=== PATIENT | female | born 1950 | race Two or more races ===

== ENCOUNTER 2017-10-30 05:43 | Inpatient (IN) | payer MEDICARE, OTHER ==
[~2017-10-30] VITALS: Ht 154.9 cm; Wt 97.0 kg
[2017-10-30] MEDS ORDERED: MORPHINE SULF INJ 2 MG/ML SYRINGE 1ML IV ONE (07:45)
[2017-10-30] MEDS ORDERED: ONDANSETRON HCL 4 MG/2 ML VIAL IV ONE ×2 (07:45→20:15)
[2017-10-30] MEDS ORDERED: SODIUM CHLORIDE 0.9% 1,000 ML IV SCH (08:58)
[2017-10-30] MEDS ORDERED: LORazepam 0.5 MG TAB PO PRN (09:00)
[2017-10-30] MEDS ORDERED: TEMAZEPAM 15 MG CAP PO PRN (09:00)
[2017-10-30] MEDS ORDERED: ACETAMINOPHEN 500 MG TAB PO PRN (09:00)
[2017-10-30] MEDS ORDERED: LACTULOSE 20Gm/30ML SOLN PO PRN (09:00)
[2017-10-30] MEDS ORDERED: PROMETHAZINE HCL 25 MG/ML 1ML IV PRN (09:00)
[2017-10-30] MEDS ORDERED: NITROGLYCERIN 0.4 MG SL TAB SL PRN (09:00)
[2017-10-30] MEDS ORDERED: MORPHINE SULF INJ 2 MG/ML SYRINGE 1ML IV PRN ×3 (09:00→20:15)
[2017-10-30 09:28] LABS: Basophils # (auto) 0.1 uL; Basophils % (auto) 0.7 % (0.0-2.0); Eosinophils # (auto) 0 uL; Hematocrit 35.2 % (36.0-46.0); Hemoglobin 11.8 g/dL (12.2-16.2); Lymphocytes # (auto) 0.9 uL; Lymphocytes % (auto) 11.6 % (10.0-50.0); Mean Corpuscular Hemoglobin 32.3 pg (28.0-32.0); Mean Corpuscular Hgb Conc. 33.6 g/dL (32.0-36.0); Mean Corpuscular Volume 96.3 fL (80.0-100.0); Monocytes # (auto) 1.2 uL; Monocytes % (auto) 15.7 % (0.0-12.0); Neutrophils # (auto) 5.7 uL; Platelet Count (auto) 176 10^3/uL (140-450); Red Blood Cells 3.66 10^6/uL (4.0-5.20); Red Cell Distribution Width 14.1 % (11.8-14.3); White Blood Cell 7.9 10^3/uL (4.4-10.8)
[2017-10-30 09:40] LABS: INR 0.94 (0.9-1.15); Partial Thromboplastin Time 27.8 sec (22.64-33.71); Prothrombin Time 10.2 sec (9.37-12.3)
[2017-10-30] MEDS: PANTOPRAZOLE 40 MG TAB PO SCH (10:00)
[2017-10-30 10:10] LABS: Albumin 2.9 g/dL (3.4-5.0); Magnesium 2.1 mg/dL (1.6-2.6); Potassium 4.5 mmol/L (3.5-5.1)
[2017-10-30 10:12] LABS: BUN/Creatinine Ratio 21.8
[2017-10-30 10:15] LABS: Bilirubin, Total 0.3 mg/dL (0.2-1.0); Total Protein 7.2 g/dL (6.4-8.2)
[2017-10-30] MEDS ORDERED: OSELTAMIVIR 75 MG CAP PO ONE (10:30)
[2017-10-30] MEDS ORDERED: CARVEDILOL 3.125 MG TAB PO SCH (10:45)
[2017-10-30] MEDS: cefTRIAXone 1GM/10ml IVPUSH 10 ML IV SCH (11:15)
[2017-10-30] MEDS: ENALAPRIL MALEATE 2.5 MG TAB PO SCH (11:15)
[2017-10-30 16:15] LABS: Urine Amorphous Crystal FEW /hpf (None Seen); Urine Bacteria FEW /hpf (None Seen); Urine Blood 2+ /uL (Negative); Urine Mucus FEW (None Seen); Urine Specific Gravity 1.021 (1.001-1.035); Urine WBC 2 /hpf (0 - 5)
[2017-10-30 17:00] VITALS: BP 148/68
[2017-10-30] MEDS ORDERED: ceFAZolin 1GM/50ML 50 ML IV ONE (17:05)
[2017-10-30] MEDS ORDERED: fentaNYL CITRATE 100 MCG/2 ML VL ONE (17:20)
[2017-10-30] MEDS ORDERED: MIDAZOLAM HCL 1MG/1ML-2 ML VIAL ONE (17:22)
[2017-10-30] MEDS ORDERED: BUPIVACAINE W/ EPINEPH 0.25% INJ 50ML MDV ONE (17:33)
[2017-10-30] MEDS ORDERED: BUPIVACAINE 0.25% INJ 50ML VIAL ONE (17:34)
[2017-10-30] MEDS ORDERED: hydrALAZINE HCL 20 MG/ML VL IV PRN (20:15)
[2017-10-30] MEDS ORDERED: ePHEDrine SULFATE 50 MG/ML AMP IV PRN (20:15)
[2017-10-30] MEDS ORDERED: cefTRIAXone 1GM/50ML D5W 50 ML IV ONE (20:24)
[2017-10-30] MEDS ORDERED: HYDROmorphone HCL 2 MG/ML VL IV PRN (20:30)
[2017-10-30 22:00] VITALS: BP 134/72
[2017-10-30] MEDS: ATORVASTATIN 20 MG TAB PO SCH (22:27)
[2017-10-30] MEDS: OSELTAMIVIR 75 MG CAP PO SCH (22:28)
[2017-10-31 05:43] LABS: Hematocrit 30.5 % (36.0-46.0); Hemoglobin 10.2 g/dL (12.2-16.2)
[2017-10-31 06:00] VITALS: BP 111/52
[2017-10-31] MEDS: ceFAZolin 1GM/50ML 50 ML IV SCH ×4 (06:06→17:35)
[2017-10-31 09:00] VITALS: BP 109/67
[2017-10-31] MEDS: OSELTAMIVIR 75 MG CAP PO SCH ×2 (09:34→22:00)
[2017-10-31] MEDS: PANTOPRAZOLE 40 MG TAB PO SCH (09:34)
[2017-10-31] MEDS: cefTRIAXone 1GM/10ml IVPUSH 10 ML IV SCH (09:35)
[2017-10-31] MEDS: ENALAPRIL MALEATE 2.5 MG TAB PO SCH (09:35)
[2017-10-31] MEDS ORDERED: DEXTROSE (50%) 50ML SYRG IV PRN (12:45)
[2017-10-31 13:00] VITALS: BP 100/50
[2017-10-31 17:31] VITALS: BP 123/68
[2017-10-31] MEDS: InsuLIN REG 1unit/0.01ml Soln (100units/ml) SC SCH (17:35)
[2017-10-31] MEDS: ACCU-CHEK COMFORT CURVE STRIP VI SCH (17:36)
[2017-10-31] MEDS ORDERED: NALOXONE HCL 0.4 MG/ML VIAL IV ONE (20:30)
[2017-10-31] MEDS ORDERED: NALOXONE HCL 0.4 MG/ML VIAL ONE (20:31)
[2017-10-31 22:00] VITALS: BP 106/58
[2017-10-31] MEDS: ATORVASTATIN 20 MG TAB PO SCH (22:00)
[2017-11-01] MEDS: ceFAZolin 1GM/50ML 50 ML IV SCH ×5 (00:36→23:46)
[2017-11-01] MEDS: InsuLIN REG 1unit/0.01ml Soln (100units/ml) SC SCH ×5 (00:37→23:46)
[2017-11-01] MEDS: ACCU-CHEK COMFORT CURVE STRIP VI SCH ×5 (00:37→23:46)
[2017-11-01 06:06] VITALS: BP 122/60
[2017-11-01 07:11] LABS: Hematocrit 30.1 % (36.0-46.0)
[2017-11-01 09:00] VITALS: BP 122/86
[2017-11-01] MEDS: ENALAPRIL MALEATE 2.5 MG TAB PO SCH (09:50)
[2017-11-01] MEDS: cefTRIAXone 1GM/10ml IVPUSH 10 ML IV SCH (09:50)
[2017-11-01] MEDS: PANTOPRAZOLE 40 MG TAB PO SCH (09:50)
[2017-11-01] MEDS: OSELTAMIVIR 75 MG CAP PO SCH ×2 (09:50→21:56)
[2017-11-01] MEDS: ENOXAPARIN SOD 40 MG/0.4 ML SYRINGE SC SCH (09:51)
[2017-11-01 13:00] VITALS: BP 122/57
[2017-11-01 17:02] VITALS: BP 121/55
[2017-11-01 21:00] VITALS: BP 118/59
[2017-11-01] MEDS: ATORVASTATIN 20 MG TAB PO SCH (21:56)
[2017-11-02 05:34] VITALS: BP 135/66
[2017-11-02] MEDS: InsuLIN REG 1unit/0.01ml Soln (100units/ml) SC SCH ×3 (06:26→18:47)
[2017-11-02] MEDS: ACCU-CHEK COMFORT CURVE STRIP VI SCH ×3 (06:26→18:46)
[2017-11-02] MEDS: ceFAZolin 1GM/50ML 50 ML IV SCH ×3 (06:27→18:47)
[2017-11-02 07:30] VITALS: BP 122/76
[2017-11-02 09:00] VITALS: BP 122/76
[2017-11-02] MEDS: HYDROcodone-ACET 5/325MG TAB PO PRN ×2 (09:30→15:07)
[2017-11-02] MEDS: cefTRIAXone 1GM/10ml IVPUSH 10 ML IV SCH (09:31)
[2017-11-02] MEDS: ENALAPRIL MALEATE 2.5 MG TAB PO SCH (09:32)
[2017-11-02] MEDS: OSELTAMIVIR 75 MG CAP PO SCH ×3 (09:32→22:35)
[2017-11-02] MEDS: PANTOPRAZOLE 40 MG TAB PO SCH (09:32)
[2017-11-02] MEDS: ENOXAPARIN SOD 40 MG/0.4 ML SYRINGE SC SCH (09:33)
[2017-11-02 10:15] LABS: Hematocrit 27.9 % (36.0-46.0); Hemoglobin 9.4 g/dL (12.2-16.2)
[2017-11-02 13:00] VITALS: BP 128/58
[2017-11-02 17:52] VITALS: BP 117/58
[2017-11-02] MEDS: ATORVASTATIN 20 MG TAB PO SCH ×2 (22:29→22:35)
[2017-11-02 22:30] VITALS: BP 114/51
[2017-11-03] VITALS (8 sets, daily range): BP systolic 124–163; BP diastolic 54–113
[2017-11-03] MEDS: InsuLIN REG 1unit/0.01ml Soln (100units/ml) SC SCH ×4 (00:16→17:37)
[2017-11-03] MEDS: ACCU-CHEK COMFORT CURVE STRIP VI SCH ×4 (00:16→17:37)
[2017-11-03] MEDS: ceFAZolin 1GM/50ML 50 ML IV SCH ×4 (00:16→18:00)
[2017-11-03 07:32] LABS: Hematocrit 25.8 % (36.0-46.0); Hemoglobin 8.6 g/dL (12.2-16.2)
[2017-11-03] MEDS: ENOXAPARIN SOD 40 MG/0.4 ML SYRINGE SC SCH (09:34)
[2017-11-03] MEDS: PANTOPRAZOLE 40 MG TAB PO SCH (09:35)
[2017-11-03] MEDS: OSELTAMIVIR 75 MG CAP PO SCH ×2 (09:35→23:17)
[2017-11-03] MEDS: ENALAPRIL MALEATE 2.5 MG TAB PO SCH (09:35)
[2017-11-03] MEDS: cefTRIAXone 1GM/10ml IVPUSH 10 ML IV SCH (09:36)
[2017-11-03 11:09] LABS: Basophils # (auto) 0 uL; Basophils % (auto) 0.3 % (0.0-2.0); Eosinophils # (auto) 0 uL; Eosinophils % (auto) 0.3 % (0.0-7.0); Hematocrit 25.2 % (36.0-46.0); Hemoglobin 8.4 g/dL (12.2-16.2); Lymphocytes # (auto) 1.9 uL; Lymphocytes % (auto) 21.7 % (10.0-50.0); Mean Corpuscular Hemoglobin 32.1 pg (28.0-32.0); Mean Corpuscular Hgb Conc. 33.4 g/dL (32.0-36.0); Mean Corpuscular Volume 96.3 fL (80.0-100.0); Monocytes # (auto) 0.9 uL; Monocytes % (auto) 10.3 % (0.0-12.0); Neutrophils % (auto) 67.4 % (37.0-80.0); Platelet Count (auto) 185 10^3/uL (140-450); Red Blood Cells 2.62 10^6/uL (4.0-5.20); White Blood Cell 8.9 10^3/uL (4.4-10.8)
[2017-11-03 11:29] LABS: Albumin 2.1 g/dL (3.4-5.0); Alkaline Phosphatase 100 U/L (45-117); Anion Gap 6 (5-15); Aspartate Aminotransferase 21 U/L (15-37); Bilirubin, Total 0.2 mg/dL (0.2-1.0); Blood Urea Nitrogen 45 mg/dL (7-18); Calcium 7.7 mg/dL (8.5-10.1); Carbon Dioxide 24 mmol/L (21-32); Chloride 116 mmol/L (98-107); GFR African American 81 mL/min; GFR Non-African American 67 mL/min; Glucose 132 mg/dL (74-106); Potassium 3.7 mmol/L (3.5-5.1); Sodium 146 mmol/L (136-145); Total Protein 6.1 g/dL (6.4-8.2)
[2017-11-03 11:44] LABS: Alanine Aminotransferase < 6 U/L (13-56)
[2017-11-03] MEDS: PRO-STAT 64 30ML PO SCH (17:37)
[2017-11-03] MEDS: ATORVASTATIN 20 MG TAB PO SCH (23:16)
[2017-11-04 00:02] VITALS: BP 177/71
[2017-11-04] MEDS: InsuLIN REG 1unit/0.01ml Soln (100units/ml) SC SCH ×3 (00:35→12:09)
[2017-11-04] MEDS ORDERED: cloNIDine HCL 0.1 MG TAB PO ONE ×2 (01:00→07:00)
[2017-11-04] MEDS: ACCU-CHEK COMFORT CURVE STRIP VI SCH ×3 (01:04→12:08)
[2017-11-04 05:00] VITALS: BP 174/88
[2017-11-04 06:54] LABS: Basophils # (auto) 0 uL; Basophils % (auto) 0.2 % (0.0-2.0); Eosinophils # (auto) 0 uL; Eosinophils % (auto) 0.3 % (0.0-7.0); Hematocrit 29.4 % (36.0-46.0); Lymphocytes # (auto) 1.8 uL; Lymphocytes % (auto) 20.9 % (10.0-50.0); Mean Corpuscular Hemoglobin 31.8 pg (28.0-32.0); Mean Corpuscular Volume 93.4 fL (80.0-100.0); Monocytes # (auto) 0.9 uL; Monocytes % (auto) 10.4 % (0.0-12.0); Neutrophils % (auto) 68.2 % (37.0-80.0); Platelet Count (auto) 225 10^3/uL (140-450); Red Blood Cells 3.15 10^6/uL (4.0-5.20); White Blood Cell 8.9 10^3/uL (4.4-10.8)
[2017-11-04 07:44] LABS: Albumin 2.2 g/dL (3.4-5.0); BUN/Creatinine Ratio 47.6; Bilirubin, Total 0.6 mg/dL (0.2-1.0); Calcium 7.8 mg/dL (8.5-10.1); Potassium 3.5 mmol/L (3.5-5.1); Total Protein 6.6 g/dL (6.4-8.2)
[2017-11-04] MEDS: PRO-STAT 64 30ML PO SCH (08:06)
[2017-11-04] MEDS: cefTRIAXone 1GM/10ml IVPUSH 10 ML IV SCH (08:37)
[2017-11-04 09:00] VITALS: BP 139/68
[2017-11-04] MEDS: PANTOPRAZOLE 40 MG TAB PO SCH (10:05)
[2017-11-04] MEDS: ENALAPRIL MALEATE 2.5 MG TAB PO SCH (10:05)
[2017-11-04] MEDS: ENOXAPARIN SOD 40 MG/0.4 ML SYRINGE SC SCH (10:05)
[2017-11-04] MEDS: OSELTAMIVIR 75 MG CAP PO SCH (10:05)
[2017-11-04 12:19] VITALS: BP 139/68
[2017-11-04 12:30] VITALS: BP 135/64
== END 2017-11-04 15:55 | disposition home health service (06) | DRG 480 ==
LOC: ER 05:43 → TELE 05:44 → TELE-EAST 16:04
PROVIDERS: ADMIT Internal Medicine; ATTEND Family Medicine
PROC: 0MQN0ZZ Repair Right Knee Bursa and Ligament, Open Approach (ICD-10-PCS; 2017-10-30)
PROC: 0QHY0MZ Insertion of Bone Growth Stimulator into Lower Bone, Open Approach (ICD-10-PCS; 2017-10-30)
PROC: 0SCC0ZZ Extirpation of Matter from Right Knee Joint, Open Approach (ICD-10-PCS; 2017-10-30)
PROC: 0QSB04Z Reposition Right Lower Femur with Internal Fixation Device, Open Approach (ICD-10-PCS; principal; 2017-10-30 17:25)
PROC: 30233N1 Transfusion of Nonautologous Red Blood Cells into Peripheral Vein, Percutaneous Approach (ICD-10-PCS; 2017-11-03)
DX: S72.351A Displaced comminuted fracture of shaft of right femur, initial encounter for closed fracture (principal); E43 Unspecified severe protein-calorie malnutrition; M25.061 Hemarthrosis, right knee; Z68.41 Body mass index [BMI] 40.0-44.9, adult; N39.0 Urinary tract infection, site not specified; E11.8 Type 2 diabetes mellitus with unspecified complications; E11.65 Type 2 diabetes mellitus with hyperglycemia; E66.01 Morbid (severe) obesity due to excess calories; S72.451A Displaced supracondylar fracture without intracondylar extension of lower end of right femur, initial encounter for closed fracture; E78.5 Hyperlipidemia, unspecified; I10 Essential (primary) hypertension; D64.9 Anemia, unspecified; H26.9 Unspecified cataract; K43.9 Ventral hernia without obstruction or gangrene; J11.1 Influenza due to unidentified influenza virus with other respiratory manifestations; W06.XXXA Fall from bed, initial encounter; Z79.4 Long term (current) use of insulin; Y93.89 Activity, other specified; Y99.8 Other external cause status; Y92.003 Bedroom of unspecified non-institutional (private) residence as the place of occurrence of the external cause; Z90.89 Acquired absence of other organs; Z98.51 Tubal ligation status
CPT/HCPCS: 36415; 51702; 70450; 71045; 76001; 80053; 81001; 82962; 83036; 83735; 83880; 85014; 85018; 85025; 85610; 85730; 86850; 86900; 86901; 86920; 87086; 87400; 93005; 93306; 94761; 96361; 96374; 96375; 97110; 97163; 97530; J0690; J0696; J1815; J2250; J2405; J3490